=== PATIENT | male | born 1970 | race Caucasian/White ===

== ENCOUNTER 2022-03-19 18:55 | Emergency (ER) | payer OTHER ==
[2022-03-19 22:23] LABS: HEMOGLOBIN 13.3 gm/dl (14.0-17.5); RED BLOOD COUNT 4.36 M/UL (4.20-5.50); WHITE BLOOD COUNT 9.7 K/UL (4.5-11.0)
[2022-03-19 22:48] LABS: BUN/CREATININE RATIO 15 (0-10)
[2022-03-20] MEDS ORDERED: PERCOCET 5/325 T1 EA PO (02:20)
[2022-03-20] MEDS ORDERED: BACTRIM DS TAB1 EACH PO (02:20)
== END 2022-03-20 03:13 | disposition home or self-care (01) ==
LOC: ER1 18:55
PROVIDERS: Physician Assistant
DX: L03.012 Cellulitis of left finger (principal); J44.9 Chronic obstructive pulmonary disease, unspecified; F17.200 Nicotine dependence, unspecified, uncomplicated; Z23 Encounter for immunization
CPT/HCPCS: 64450; 73130; 80053; 85025; 85652; 86140; 87070; 87077; 87205; 90471; 90715; 99283